=== PATIENT | female | born 1935 | race Caucasian/White ===

== ENCOUNTER → 2021-11-04 | Outpatient (CLI) | payer MEDICARE, MEDICAID ==
[2021-11-04 17:11] LABS: HEMATOCRIT 33.2 % (37.0-47.0); HEMOGLOBIN 10.4 g/dL (12.5-16.0); MEAN PLATELET VOLUME 11.2 fl (7.4-10.4); RED BLOOD COUNT 3.38 M/mm3 (4.10-5.30); RED CELL DISTRIBUTION WIDTH 15.5 % (11.5-14.5)
[2021-11-04 18:58] LABS: URINE APPEARANCE CLOUDY; URINE COLOR YELLOW
[2021-11-04 18:59] LABS: URINE BILIRUBIN NEGATIVE (NEGATIVE); URINE BLOOD 50 ery/uL (NEGATIVE); URINE GLUCOSE NEGATIVE (NEGATIVE); URINE KETONE NEGATIVE (NEGATIVE); URINE LEUKOCYTE ESTERASE 1+ (NEGATIVE); URINE MUCUS PRESENT (NOT PRESENT); URINE NITRATE NEGATIVE (NEGATIVE); URINE PROTEIN(semi-quant) 2+ (NEGATIVE); URINE UROBILINOGEN NORMAL (NORMAL); URINE WBC >50 /hpf (0-3)
[2021-11-09 14:34] LABS: CALCIUM 8.5 mg/dL (8.3-10.5)
[2021-11-09 14:35] LABS: TOTAL PROTEIN 5.6 g/dL (6.2-8.1)
[2021-11-09 14:37] LABS: TOTAL BILIRUBIN 0.3 mg/dL (0.2-1.2)
== END ==
LOC: LAB 16:59
PROVIDERS: Family Medicine
DX: E11.9 Type 2 diabetes mellitus without complications (principal); D64.9 Anemia, unspecified; R30.0 Dysuria; N39.0 Urinary tract infection, site not specified

== ENCOUNTER → 2021-11-13 | Outpatient (CLI) | payer MEDICARE, MEDICAID ==
[2021-11-13 12:21] LABS: PH-URINE 5.5 (5.0 - 8.0); URINE APPEARANCE CLOUDY; URINE BILIRUBIN NEGATIVE (NEGATIVE); URINE COLOR YELLOW; URINE GLUCOSE NEGATIVE (NEGATIVE); URINE KETONE NEGATIVE (NEGATIVE); URINE NITRATE POSITIVE (NEGATIVE); URINE PROTEIN(semi-quant) TRACE (NEGATIVE); URINE UROBILINOGEN NORMAL (NORMAL)
[2021-11-13 12:22] LABS: URINE BLOOD 50 ery/uL (NEGATIVE); URINE LEUKOCYTE ESTERASE 2+ (NEGATIVE); URINE WBC >50 /hpf (0-3)
== END ==
LOC: LAB 11:11
PROVIDERS: Family Medicine
DX: N39.0 Urinary tract infection, site not specified (principal)

== ENCOUNTER → 2021-11-18 | Outpatient (CLI) | payer MEDICARE, MEDICAID ==
[2021-11-18 11:05] LABS: URINE APPEARANCE HAZY; URINE BILIRUBIN NEGATIVE (NEGATIVE); URINE BLOOD 50 ery/uL (NEGATIVE); URINE COLOR YELLOW; URINE GLUCOSE NEGATIVE (NEGATIVE); URINE KETONE NEGATIVE (NEGATIVE); URINE LEUKOCYTE ESTERASE 2+ (NEGATIVE); URINE MUCUS PRESENT (NOT PRESENT); URINE NITRATE NEGATIVE (NEGATIVE); URINE PROTEIN(semi-quant) 2+ (NEGATIVE); URINE UROBILINOGEN NORMAL (NORMAL); URINE WBC 31-50 /hpf (0-3)
== END ==
LOC: LAB 10:30
PROVIDERS: Family Medicine
DX: N39.0 Urinary tract infection, site not specified (principal)

== ENCOUNTER 2021-12-03 20:23 | Emergency (ER) | payer MEDICARE, MEDICAID ==
[~2021-12-03] VITALS: Ht 177.8 cm; Wt 81.8 kg
[2021-12-03] MEDS ORDERED: ACETAMINOPHEN325 M1 PO (20:41)
[2021-12-03] MEDS ORDERED: LEADER ASPIRIN325 MG PO (20:42)
[2021-12-03] MEDS ORDERED: AMIODARONE200 MG PO (20:42)
[2021-12-03] MEDS ORDERED: ZYLOPRIM100 MG PO (20:42)
[2021-12-03] MEDS ORDERED: NEURONTIN100 M1 PO (20:43)
[2021-12-03] MEDS ORDERED: FENOFIBRATE160 MG PO (20:43)
[2021-12-03] MEDS ORDERED: CELEXA 20MG20 MG/TA1 PO (20:43)
[2021-12-03] MEDS ORDERED: TRADJENTA5 MG PO (20:44)
[2021-12-03] MEDS ORDERED: LEVOTHYROXINE125 MC1 PO (20:44)
[2021-12-03] MEDS ORDERED: MIDODRINE HCL2.5 MG PO (20:44)
[2021-12-03] MEDS ORDERED: TRULICITY0.75 MG/0. SC (20:45)
[2021-12-03 22:09] LABS: BASO # 0.04 K/mm3 (0.02-0.10); EOS # 0.26 K/mm3 (0.04-0.40); EOS % 2.3 % (1.0-5.0); HEMATOCRIT 31.1 % (37.0-47.0); LYMPH# 1.87 K/mm3 (1.50-4.00); MEAN CELL VOLUME 101 fl (78-100); MEAN CORPUSCULAR HEMOGLOBIN 33 pg (27-31); MEAN CORPUSCULAR HGB CONC 32 g/dL (33-37); MEAN PLATELET VOLUME 10.2 fl (7.4-10.4); MONO # 1.25 K/mm3 (0.20-0.80); NEU # 7.96 K/mm3 (1.40-6.50); PLATELET COUNT 441 K/mm3 (130-400); RED BLOOD COUNT 3.08 M/mm3 (4.10-5.30); RED CELL DISTRIBUTION WIDTH 14.9 % (11.5-14.5); WHITE BLOOD COUNT 11.4 K/mm3 (4.8-10.8)
[2021-12-03 22:21] LABS: POTASSIUM 4.2 mmol/L (3.5-5.1)
[2021-12-03 22:22] LABS: CALCIUM 8.8 mg/dL (8.3-10.5)
[2021-12-03 22:26] LABS: URINE APPEARANCE CLOUDY; URINE BLOOD 250 ery/uL (NEGATIVE); URINE COLOR RED; URINE PROTEIN(semi-quant) 2+ (NEGATIVE)
[2021-12-03 22:27] LABS: URINE WBC 16-30 /hpf (0-3)
[2021-12-03] MEDS ORDERED: PYRIDIUM200 M2 PO (23:23)
[2021-12-03] MEDS ORDERED: [UNRECOGNIZED DRUG - OTHER] PO (23:23)
[2021-12-04 00:03] VITALS: BP 104/75
== END 2021-12-04 00:03 | disposition home or self-care (01) ==
LOC: ED 20:23
PROVIDERS: Family Medicine
DX: N30.01 Acute cystitis with hematuria (principal)
CPT/HCPCS: J0295; J3010

== ENCOUNTER → 2021-12-11 | Outpatient (CLI) | payer MEDICARE, MEDICAID ==
[~2021-12-11] MED LIST: ACETAMINOPHEN325 M1 PO; AMIODARONE200 MG PO; CELEXA 20MG20 MG/TA1 PO; FENOFIBRATE160 MG PO; LEADER ASPIRIN325 MG PO; LEVOTHYROXINE125 MC1 PO; MIDODRINE HCL2.5 MG PO; NEURONTIN100 M1 PO; PYRIDIUM200 M2 PO; TRADJENTA5 MG PO; TRULICITY0.75 MG/0. SC; ZYLOPRIM100 MG PO; [UNRECOGNIZED DRUG - OTHER] PO
[2021-12-11 15:26] LABS: POTASSIUM 4.1 mmol/L (3.5-5.1)
[2021-12-11 15:27] LABS: CALCIUM 8.4 mg/dL (8.3-10.5)
== END ==
LOC: LAB 14:43
PROVIDERS: Family Medicine
DX: E03.9 Hypothyroidism, unspecified (principal); Z98.890 Other specified postprocedural states

== ENCOUNTER → 2021-12-23 | Outpatient (CLI) | payer MEDICARE, MEDICAID | LOC: LAB 10:33 | DX: M10.9 Gout, unspecified (principal) ==

== ENCOUNTER → 2022-01-31 | Outpatient (CLI) | payer MEDICARE, MEDICAID ==
[2022-02-01 14:21] LABS: URINE APPEARANCE CLOUDY; URINE COLOR YELLOW
[2022-02-01 14:22] LABS: URINE BILIRUBIN NEGATIVE (NEGATIVE); URINE BLOOD 250 ery/uL (NEGATIVE); URINE GLUCOSE NEGATIVE (NEGATIVE); URINE KETONE NEGATIVE (NEGATIVE); URINE LEUKOCYTE ESTERASE 2+ (NEGATIVE); URINE MUCUS PRESENT (NOT PRESENT); URINE NITRATE NEGATIVE (NEGATIVE); URINE PROTEIN(semi-quant) 3+ (NEGATIVE); URINE UROBILINOGEN NORMAL (NORMAL); URINE WBC >50 /hpf (0-3)
== END ==
LOC: LAB 15:45
PROVIDERS: Family Medicine
DX: N39.0 Urinary tract infection, site not specified (principal)

== ENCOUNTER → 2022-02-20 | Outpatient (CLI) | payer MEDICARE, MEDICAID ==
[2022-02-20 11:20] LABS: PH-URINE 6.5 (5.0 - 8.0); URINE APPEARANCE CLOUDY; URINE BILIRUBIN NEGATIVE (NEGATIVE); URINE BLOOD NEGATIVE (NEGATIVE); URINE COLOR YELLOW; URINE GLUCOSE NEGATIVE (NEGATIVE); URINE KETONE NEGATIVE (NEGATIVE); URINE LEUKOCYTE ESTERASE 1+ (NEGATIVE); URINE NITRATE NEGATIVE (NEGATIVE); URINE PROTEIN(semi-quant) TRACE (NEGATIVE); URINE UROBILINOGEN NORMAL (NORMAL); URINE WBC 16-30 /hpf (0-3)
== END ==
LOC: LAB 03:15
PROVIDERS: Family Medicine
DX: N39.0 Urinary tract infection, site not specified (principal)

== ENCOUNTER 2022-04-20 09:08 | Emergency (ER) | payer MEDICARE, MEDICAID ==
[~2022-04-20] VITALS: Ht 167.6 cm; Wt 78.6 kg
[2022-04-20 09:58] LABS: BASO # 0.02 K/mm3 (0.02-0.10); EOS # 0.33 K/mm3 (0.04-0.40); HEMOGLOBIN 11.9 g/dL (12.5-16.0); LYMPH# 2.55 K/mm3 (1.50-4.00); MEAN CELL VOLUME 101 fl (78-100); MEAN CORPUSCULAR HEMOGLOBIN 32 pg (27-31); MEAN CORPUSCULAR HGB CONC 32 g/dL (33-37); MEAN PLATELET VOLUME 10.8 fl (7.4-10.4); MONO # 0.73 K/mm3 (0.20-0.80); NEU # 4.62 K/mm3 (1.40-6.50); PLATELET COUNT 355 K/mm3 (130-400); RED BLOOD COUNT 3.68 M/mm3 (4.10-5.30); RED CELL DISTRIBUTION WIDTH 14.5 % (11.5-14.5); WHITE BLOOD COUNT 8.3 K/mm3 (4.8-10.8)
[2022-04-20 10:10] LABS: ALBUMIN 3.5 g/dL (3.4-4.8)
[2022-04-20 10:12] LABS: CALCIUM 9.4 mg/dL (8.3-10.5)
[2022-04-20 10:13] LABS: TOTAL PROTEIN 7.3 g/dL (6.2-8.1)
[2022-04-20 10:15] LABS: TOTAL BILIRUBIN 0.6 mg/dL (0.2-1.2)
[2022-04-20] MEDS ORDERED: FERROUS SULFAT325 M4 PO (10:49)
[2022-04-20 11:00] LABS: PH-URINE 6.5 (5.0 - 8.0); URINE APPEARANCE CLOUDY; URINE COLOR YELLOW; URINE GLUCOSE NEGATIVE (NEGATIVE); URINE PROTEIN(semi-quant) 2+ (NEGATIVE)
[2022-04-20 11:01] LABS: URINE BILIRUBIN NEGATIVE (NEGATIVE); URINE BLOOD 250 ery/uL (NEGATIVE); URINE KETONE 1+ (NEGATIVE); URINE LEUKOCYTE ESTERASE 2+ (NEGATIVE); URINE NITRATE POSITIVE (NEGATIVE); URINE UROBILINOGEN 1 mg/dL (NORMAL); URINE WBC >50 /hpf (0-3)
[2022-04-20] MEDS ORDERED: CEFDINIR300 MG PO (11:25)
[2022-04-20 11:52] VITALS: BP 136/72
== END 2022-04-20 11:48 | disposition home or self-care (01) ==
LOC: ED 09:08
PROVIDERS: Physician Assistant
DX: N39.0 Urinary tract infection, site not specified (principal)
CPT/HCPCS: J0696

== ENCOUNTER → 2022-05-09 | Outpatient (CLI) | payer MEDICARE, MEDICAID ==
[~2022-05-09] MED LIST changes: +CEFDINIR300 MG PO; +FERROUS SULFAT325 M4 PO
== END ==
LOC: LAB 10:16
DX: E11.9 Type 2 diabetes mellitus without complications (principal)

== ENCOUNTER → 2022-05-16 | Outpatient (CLI) | payer MEDICARE, MEDICAID ==
[2022-05-16 08:58] LABS: HEMATOCRIT 35.1 % (37.0-47.0); HEMOGLOBIN 11.3 g/dL (12.5-16.0); MEAN PLATELET VOLUME 10.6 fl (7.4-10.4); RED BLOOD COUNT 3.52 M/mm3 (4.10-5.30); RED CELL DISTRIBUTION WIDTH 14.5 % (11.5-14.5); WHITE BLOOD COUNT 7.7 K/mm3 (4.8-10.8)
== END ==
LOC: LAB 08:34
PROVIDERS: Family Medicine
DX: S82.841D Displaced bimalleolar fracture of right lower leg, subsequent encounter for closed fracture with routine healing (principal); I48.20 Chronic atrial fibrillation, unspecified; E11.9 Type 2 diabetes mellitus without complications; D64.9 Anemia, unspecified; X58.XXXD Exposure to other specified factors, subsequent encounter

== ENCOUNTER → 2022-05-18 | Outpatient (CLI) | payer MEDICARE, MEDICAID ==
[2022-05-18 10:07] LABS: URINE APPEARANCE CLOUDY; URINE BILIRUBIN NEGATIVE (NEGATIVE); URINE BLOOD 50 ery/uL (NEGATIVE); URINE COLOR YELLOW; URINE GLUCOSE NEGATIVE (NEGATIVE); URINE KETONE NEGATIVE (NEGATIVE); URINE LEUKOCYTE ESTERASE 2+ (NEGATIVE); URINE MUCUS PRESENT (NOT PRESENT); URINE NITRATE NEGATIVE (NEGATIVE); URINE PROTEIN(semi-quant) 2+ (NEGATIVE); URINE UROBILINOGEN NORMAL (NORMAL); URINE WBC >50 /hpf (0-3)
== END ==
LOC: LAB 09:31
PROVIDERS: Family Medicine
DX: N39.0 Urinary tract infection, site not specified (principal)

== ENCOUNTER → 2022-05-28 | Outpatient (CLI) | payer MEDICARE, MEDICAID ==
[2022-05-28 07:53] LABS: URINE APPEARANCE HAZY; URINE BILIRUBIN NEGATIVE (NEGATIVE); URINE BLOOD NEGATIVE (NEGATIVE); URINE COLOR YELLOW; URINE GLUCOSE NEGATIVE (NEGATIVE); URINE KETONE NEGATIVE (NEGATIVE); URINE LEUKOCYTE ESTERASE 1+ (NEGATIVE); URINE NITRATE NEGATIVE (NEGATIVE); URINE PROTEIN(semi-quant) TRACE (NEGATIVE); URINE UROBILINOGEN NORMAL (NORMAL)
== END ==
LOC: LAB 00:40
PROVIDERS: Family Medicine
DX: N39.0 Urinary tract infection, site not specified (principal)

== ENCOUNTER → 2022-06-04 | Outpatient (CLI) | payer MEDICARE, MEDICAID ==
[2022-06-04 13:52] LABS: PH-URINE 6.5 (5.0 - 8.0); URINE APPEARANCE CLOUDY; URINE BILIRUBIN NEGATIVE (NEGATIVE); URINE BLOOD 50 ery/uL (NEGATIVE); URINE COLOR YELLOW; URINE GLUCOSE NEGATIVE (NEGATIVE); URINE KETONE NEGATIVE (NEGATIVE); URINE LEUKOCYTE ESTERASE 2+ (NEGATIVE); URINE NITRATE POSITIVE (NEGATIVE); URINE PROTEIN(semi-quant) 2+ (NEGATIVE); URINE UROBILINOGEN NORMAL (NORMAL); URINE WBC >50 /hpf (0-3)
== END ==
LOC: LAB 11:01
PROVIDERS: Family Medicine
DX: N39.0 Urinary tract infection, site not specified (principal)

== ENCOUNTER → 2022-06-24 | Outpatient (CLI) | payer MEDICARE, MEDICAID ==
[~2022-06-24] MED LIST changes: +ADULT TUSS100 MG/5 M PO; +ANTI-ITCH 1%-0.28 GM TP; +CRANBERRY 12,61 EACH PO; +LINEZOLID600 MG PO; +MORPHINE S100 MG/5 M SL; +NYSTATIN15 G1; +ONE-DAILY MULT1 EAC1 PO; +PROBIOTIC & ACI1 CAP PO
[2022-06-24 15:26] LABS: URINE APPEARANCE HAZY; URINE BILIRUBIN NEGATIVE (NEGATIVE); URINE COLOR YELLOW; URINE GLUCOSE NEGATIVE (NEGATIVE); URINE KETONE NEGATIVE (NEGATIVE); URINE PROTEIN(semi-quant) NEGATIVE (NEGATIVE); URINE UROBILINOGEN NORMAL (NORMAL)
[2022-06-24 15:27] LABS: URINE BLOOD 50 ery/uL (NEGATIVE); URINE LEUKOCYTE ESTERASE 2+ (NEGATIVE); URINE MUCUS PRESENT (NOT PRESENT); URINE NITRATE NEGATIVE (NEGATIVE); URINE WBC 16-30 /hpf (0-3)
== END ==
LOC: LAB 14:25
PROVIDERS: Family Medicine
DX: N39.0 Urinary tract infection, site not specified (principal)

== ENCOUNTER → 2022-06-27 | Outpatient (CLI) | payer MEDICARE, MEDICAID ==
[2022-06-27 07:45] LABS: BASO # 0.05 K/mm3 (0.02-0.10); EOS # 0.24 K/mm3 (0.04-0.40); EOS % 2.9 % (1.0-5.0); HEMATOCRIT 29.4 % (37.0-47.0); HEMOGLOBIN 9.6 g/dL (12.5-16.0); LYMPH# 2.38 K/mm3 (1.50-4.00); MEAN CELL VOLUME 100 fl (78-100); MEAN CORPUSCULAR HEMOGLOBIN 33 pg (27-31); MEAN CORPUSCULAR HGB CONC 33 g/dL (33-37); MEAN PLATELET VOLUME 10.6 fl (7.4-10.4); MONO # 0.33 K/mm3 (0.20-0.80); NEU # 5.22 K/mm3 (1.40-6.50); PLATELET COUNT 211 K/mm3 (130-400); RED BLOOD COUNT 2.95 M/mm3 (4.10-5.30); RED CELL DISTRIBUTION WIDTH 14.7 % (11.5-14.5); WHITE BLOOD COUNT 8.2 K/mm3 (4.8-10.8)
[2022-06-27 07:50] LABS: ALBUMIN 3.3 g/dL (3.4-4.8); POTASSIUM 3.8 mmol/L (3.5-5.1)
[2022-06-27 07:51] LABS: CALCIUM 8.9 mg/dL (8.3-10.5)
[2022-06-27 07:52] LABS: TOTAL PROTEIN 6.5 g/dL (6.2-8.1)
[2022-06-27 07:54] LABS: TOTAL BILIRUBIN 0.6 mg/dL (0.2-1.2)
== END ==
LOC: LAB 07:11
PROVIDERS: Family Medicine
DX: E78.1 Pure hyperglyceridemia (principal); D64.9 Anemia, unspecified; N39.0 Urinary tract infection, site not specified

== ENCOUNTER 2022-06-28 10:03 | Emergency (ER) | payer MEDICARE, MEDICAID ==
[~2022-06-28] VITALS: Ht 162.6 cm; Wt 78.6 kg
[~2022-06-28 10:03] MED LIST changes: -ADULT TUSS100 MG/5 M PO; -ANTI-ITCH 1%-0.28 GM TP; -CRANBERRY 12,61 EACH PO; -LINEZOLID600 MG PO; -MORPHINE S100 MG/5 M SL; -NYSTATIN15 G1; -ONE-DAILY MULT1 EAC1 PO; -PROBIOTIC & ACI1 CAP PO
[2022-06-28 11:03] LABS: BASO # 0.04 K/mm3 (0.02-0.10); EOS # 0.25 K/mm3 (0.04-0.40); EOS % 2.8 % (1.0-5.0); HEMATOCRIT 28.9 % (37.0-47.0); HEMOGLOBIN 9.7 g/dL (12.5-16.0); LYMPH# 3.31 K/mm3 (1.50-4.00); MEAN CELL VOLUME 98 fl (78-100); MEAN CORPUSCULAR HEMOGLOBIN 33 pg (27-31); MEAN CORPUSCULAR HGB CONC 34 g/dL (33-37); MEAN PLATELET VOLUME 10.5 fl (7.4-10.4); MONO # 0.35 K/mm3 (0.20-0.80); NEU # 4.85 K/mm3 (1.40-6.50); PLATELET COUNT 235 K/mm3 (130-400); RED BLOOD COUNT 2.95 M/mm3 (4.10-5.30); RED CELL DISTRIBUTION WIDTH 14.4 % (11.5-14.5); WHITE BLOOD COUNT 8.8 K/mm3 (4.8-10.8)
[2022-06-28 11:12] LABS: ALBUMIN 3.2 g/dL (3.4-4.8)
[2022-06-28 11:15] LABS: TOTAL PROTEIN 6.5 g/dL (6.2-8.1)
[2022-06-28 11:38] LABS: URINE APPEARANCE CLOUDY; URINE BILIRUBIN NEGATIVE (NEGATIVE); URINE BLOOD 250 ery/uL (NEGATIVE); URINE COLOR RED-YELLOW; URINE GLUCOSE NEGATIVE (NEGATIVE); URINE KETONE NEGATIVE (NEGATIVE); URINE LEUKOCYTE ESTERASE 2+ (NEGATIVE); URINE NITRATE NEGATIVE (NEGATIVE); URINE PROTEIN(semi-quant) TRACE (NEGATIVE); URINE UROBILINOGEN NORMAL (NORMAL); URINE WBC 31-50 /hpf (0-3)
[2022-06-28 11:39] LABS: URINE MUCUS PRESENT (NOT PRESENT)
[2022-06-28 11:42] LABS: TOTAL BILIRUBIN 0.7 mg/dL (0.2-1.2)
[2022-06-28] MEDS ORDERED: NYSTATIN15 G1 (13:30)
[2022-06-28] MEDS ORDERED: LINEZOLID600 MG PO (13:30)
[2022-06-28] MEDS ORDERED: ADULT TUSS100 MG/5 M PO (13:32)
[2022-06-28] MEDS ORDERED: CRANBERRY 12,61 EACH PO (13:32)
[2022-06-28] MEDS ORDERED: ANTI-ITCH 1%-0.28 GM TP (13:33)
[2022-06-28] MEDS ORDERED: PROBIOTIC & ACI1 CAP PO (13:34)
[2022-06-28] MEDS ORDERED: ONE-DAILY MULT1 EAC1 PO (13:34)
[2022-06-28 13:44] VITALS: BP 113/46
[2022-06-30] MEDS ORDERED: MORPHINE S100 MG/5 M SL (07:54)
== END 2022-06-28 13:00 | disposition other institution (70) ==
LOC: ED 10:03
PROVIDERS: Physician Assistant
DX: N39.0 Urinary tract infection, site not specified (principal); B95.2 Enterococcus as the cause of diseases classified elsewhere; R41.0 Disorientation, unspecified; Z28.310 Unvaccinated for COVID-19
CPT/HCPCS: J7030; Q9967

== ENCOUNTER → 2022-07-08 | Outpatient (CLI) | payer OTHER, MEDICARE, MEDICAID ==
[~2022-07-08] MED LIST changes: +ADULT TUSS100 MG/5 M PO; +ANTI-ITCH 1%-0.28 GM TP; +CRANBERRY 12,61 EACH PO; +LINEZOLID600 MG PO; +MORPHINE S100 MG/5 M SL; +NYSTATIN15 G1; +ONE-DAILY MULT1 EAC1 PO; +PROBIOTIC & ACI1 CAP PO
[2022-07-08 10:11] LABS: URINE APPEARANCE CLOUDY; URINE BILIRUBIN NEGATIVE (NEGATIVE); URINE COLOR AMBER; URINE GLUCOSE NEGATIVE (NEGATIVE); URINE KETONE NEGATIVE (NEGATIVE); URINE PROTEIN(semi-quant) TRACE (NEGATIVE)
[2022-07-08 10:12] LABS: URINE BLOOD TRACE (NEGATIVE); URINE LEUKOCYTE ESTERASE 1+ (NEGATIVE); URINE NITRATE POSITIVE (NEGATIVE); URINE UROBILINOGEN NORMAL (NORMAL); URINE WBC >50 /hpf (0-3)
[2022-07-08 10:13] LABS: URINE MUCUS PRESENT (NOT PRESENT)
== END ==
LOC: LAB 05:10
PROVIDERS: Family Medicine
DX: N39.0 Urinary tract infection, site not specified (principal)